=== PATIENT | male | born 1985 | race Caucasian/White ===

== ENCOUNTER 2017-05-14 14:33 | Emergency (ER) | payer OTHER ==
[2017-05-14] MEDS ORDERED: ONDANSETRON 4 MG/2 ML VIAL IVP STA (15:12)
[2017-05-14] MEDS ORDERED: ACETAMINOPHEN TAB 500 MG TAB PO STA (15:13)
[2017-05-14] MEDS ORDERED: IBUPROFEN 600 MG STARTER PACK 4 TAB BTL PO STA (15:13)
[2017-05-14] MEDS ORDERED: SODIUM CHLORIDE 0.9% 1,000 ML IV ONE (15:13)
[2017-05-14 15:43] LABS: Basophils % (A) 0 %; Eosinophils # (A) 0.1 k/uL (0-0.7); Eosinophils % (A) 1 %; HCT 44.4 % (39.0-53.0); HGB 14.9 gm/dL (13.0-17.5); Lymphocytes # (A) 0.6 k/uL (1.0-4.8); Lymphocytes % (A) 11 %; MCH 30.3 pg (25.0-35.0); MCHC 33.5 g/dL (31.0-37.0); MCV 90.3 fL (80.0-100.0); Mean Platelet Volume 9.5; Monocytes # (A) 0.4 k/uL (0-1.0); Monocytes % (A) 8 %; Neutrophils # (A) 3.8 k/uL (1.3-7.7); Neutrophils % (A) 78 %; Platelet Count 121 k/uL (150-450); RBC 4.92 m/uL (4.30-5.90); RDW 14.2 % (11.5-15.5); WBC 4.9 k/uL (3.8-10.6)
--- NOTE | 2017-05-14 15:47 | XR ---
EXAMINATION TYPE: XR chest 2V DATE OF EXAM: 05/14/2017 COMPARISON: NONE HISTORY: Cough and congestion TECHNIQUE: Frontal and lateral views of the chest are obtained on 3 images. FINDINGS: There is no focal air space opacity, pleural effusion, or pneumothorax seen. The cardiac silhouette size is within normal limits. Metallic posterior present to the regions of the nipples. The osseous structures are intact. IMPRESSION: No acute cardiopulmonary process.
--- NOTE | 2017-05-14 15:47 | ED ---
Nausea/Vomiting/Diarrhea HPI - General Chief complaint: Nausea/Vomiting/Diarrhea Stated complaint: Nausea/Vomiting Time Seen by Provider: 05/14/17 14:57 Source: patient, RN notes reviewed, old records reviewed Mode of arrival: EMS Limitations: no limitations - History of Present Illness Initial comments: This patient is a 31-year-old male presents today with fever, chills, diffuse body aches. He reports these had a symptoms since Sunday. He reports severe vomiting and dry coughing as well. He arrives via EMS. Patient has not had any recent Motrin, but has not been able to hold any food or fluids down. He states that he did not receive the flu shot. Denies any significant medical history.Patient denies any recent fever, chills, shortness of breath, chest pain , back pain, abdominal pain, nausea vomiting, numbness or tingling, dysuria or hematuria, constipation or diarrhea, headaches or visual changes, or any other current symptoms - Related Data Home Medications Medication Instructions Recorded Confirmed Buprenorphine HCl/Naloxone HCl 1 tab SUBLINGUAL BID 05/14/17 05/14/17 [Zubsolv 5.7-1.4 mg Tablet Sl] Ibuprofen [Motrin] 800 mg PO TID PRN 05/14/17 05/14/17 Previous Rx's Medication Instructions Recorded Ondansetron Odt [Zofran Odt] 4 mg PO Q8HR PRN #12 tab 05/14/17 Allergies Allergy/AdvReac Type Severity Reaction Status Date / Time No Known Allergies Allergy Verified 05/14/17 15:22 Review of Systems ROS Statement: Those systems with pertinent positive or pertinent negative responses have been documented in the HPI. ROS Other: All systems not noted in ROS Statement are negative. Past Medical History Additional Past Medical History / Comment(s): hernia History of Any Multi-Drug Resistant Organisms: None Reported Past Surgical History: No Surgical Hx Reported Past Psychological History: No Psychological Hx Reported Smoking Status: Current every day smoker Past Alcohol Use History: None Reported Past Drug Use History: None Reported General Exam - General Exam Comments Initial Comments: This patient is a 31-year-old male. No acute distress. Limitations: no limitations General appearance: alert, in no apparent distress Head exam: Present: atraumatic, normocephalic, normal inspection Eye exam: Present: normal appearance, PERRL, EOMI. Absent: scleral icterus, conjunctival injection, periorbital swelling ENT exam: Present: normal exam, mucous membranes moist Neck exam: Present: normal inspection. Absent: tenderness, meningismus, lymphadenopathy Respiratory exam: Present: normal lung sounds bilaterally. Absent: respiratory distress, wheezes, rales, rhonchi, stridor Cardiovascular Exam: Present: regular rate, normal rhythm, normal heart sounds. Absent: systolic murmur, diastolic murmur, rubs, gallop, clicks GI/Abdominal exam: Present: soft, normal bowel sounds. Absent: distended, tenderness, guarding, rebound, rigid Extremities exam: Present: normal inspection, full ROM, normal capillary refill. Absent: tenderness, pedal edema, joint swelling, calf tenderness Back exam: Present: normal inspection Neurological exam: Present: alert, oriented X3, CN II-XII intact Psychiatric exam: Present: normal affect, normal mood Skin exam: Present: warm, dry, intact, normal color. Absent: rash Course Vital Signs 05/14/17 05/14/17 14:43 16:07 Temperature 101 F H 100.7 F H Pulse Rate 71 60 Respiratory 18 16 Rate Blood Pressure 131/56 95/49 O2 Sat by Pulse 98 99 Oximetry Medical Decision Making - Medical Decision Making This patient is a 31-year-old male with 4 days of cough, body aches, and fevers and vomiting. Patient has no abdominal tenderness. Lungs are clear to auscultation. Chest x-ray was reviewed and normal. Patient is positive for an influenza. Patient's CBC is within normal limits. Discussed the patient needs to remain hydrated, given Zofran, Motrin Tylenol. His fever is came down at this point. Patient will be discharged with supportive measures. Discussed return to emergency department if any alarming signs or symptoms occur. - Lab Data Result diagrams: 05/14/17 15:25 05/14/17 15:50 Lab Results 05/14/17 05/14/17 05/14/17 Range/Units 15:00 15:25 15:50 WBC 4.9 (3.8-10.6) k/uL RBC 4.92 (4.30-5.90) m/uL Hgb 14.9 (13.0-17.5) gm/dL Hct 44.4 (39.0-53.0) % MCV 90.3 (80.0-100.0) fL MCH 30.3 (25.0-35.0) pg MCHC 33.5 (31.0-37.0) g/dL RDW 14.2 (11.5-15.5) % Plt Count 121 L (150-450) k/uL Neutrophils % 78 % Lymphocytes % 11 % Monocytes % 8 % Eosinophils % 1 % Basophils % 0 % Neutrophils # 3.8 (1.3-7.7) k/uL Lymphocytes # 0.6 L (1.0-4.8) k/uL Monocytes # 0.4 (0-1.0) k/uL Eosinophils # 0.1 (0-0.7) k/uL Basophils # 0.0 (0-0.2) k/uL Sodium 142 (137-145) mmol/L Potassium 4.1 (3.5-5.1) mmol/L Chloride 105 (98-107) mmol/L Carbon Dioxide 27 (22-30) mmol/L Anion Gap 10 mmol/L BUN 18 (9-20) mg/dL Creatinine 0.80 (0.66-1.25) mg/dL Est GFR (MDRD) Af Amer >60 (>60 ml/min/1.73 sqM) Est GFR (MDRD) Non-Af >60 (>60 ml/min/1.73 sqM) Glucose 112 H (74-99) mg/dL Calcium 8.7 (8.4-10.2) mg/dL Total Bilirubin 0.4 (0.2-1.3) mg/dL AST 35 (17-59) U/L ALT 52 (21-72) U/L Alkaline Phosphatase 63 (38-126) U/L Total Protein 6.6 (6.3-8.2) g/dL Albumin 3.8 (3.5-5.0) g/dL Influenza Type A RNA Detected H (Not Detectd) Influenza Type B (PCR) Not Detected (Not Detectd) - Radiology Data Radiology results: report reviewed Chest x-rays negative for any acute process. Disposition Clinical Impression: Influenza A Disposition: HOME SELF-CARE Condition: Good Instructions: Influenza (ED) Additional Instructions: Patient is alternate Motrin and Tylenol every 4 hours. Take nausea medication as prescribed. Patient needs to follow up with primary care provider. Return to the emergency department if any alarming signs or symptoms occur. Encourage hydration. Prescriptions: Ondansetron Odt [Zofran Odt] 4 mg PO Q8HR PRN #12 tab PRN Reason: Nausea Referrals: None,Stated [Primary Care Provider] - 1-2 days Kat Baker MD [STAFF PHYSICIAN] - 1-2 days Time of Disposition: 16:03
[2017-05-14 16:10] VITALS: BP 95/49; PULSE 60; RESP 16; TEMP 100.7
[2017-05-14 16:23] LABS: ALT 52 U/L (21-72); AST 35 U/L (17-59); Albumin 3.8 g/dL (3.5-5.0); Alkaline Phosphatase 63 U/L (38-126); Blood Urea Nitrogen 18 mg/dL (9-20); Calcium 8.7 mg/dL (8.4-10.2); Carbon Dioxide 27 mmol/L (22-30); Glucose 112 mg/dL (74-99); Potassium 4.1 mmol/L (3.5-5.1); Sodium 142 mmol/L (137-145); Total Bilirubin 0.4 mg/dL (0.2-1.3); Total Protein 6.6 g/dL (6.3-8.2)
[2017-05-14 16:24] LABS: Anion Gap 10 mmol/L; Chloride 105 mmol/L (98-107)
== END 2017-05-14 16:39 | disposition home or self-care (01) ==
LOC: EC 14:33
DX: J09.X2 Influenza due to identified novel influenza A virus with other respiratory manifestations (principal); R11.2 Nausea with vomiting, unspecified; F17.200 Nicotine dependence, unspecified, uncomplicated; Z79.899 Other long term (current) drug therapy
CPT/HCPCS: 99285; 96374; 96361; 36415; 80053; 85025; 87502; 71046; J2405

== ENCOUNTER → 2017-10-08 | Outpatient (CLI) | payer OTHER ==
--- NOTE | 2017-10-08 12:00 | US ---
EXAMINATION TYPE: US abdomen complete DATE OF EXAM: 10/08/2017 COMPARISON: NONE CLINICAL HISTORY: B19.20 Hepatitis C. Hep C EXAM MEASUREMENTS: Liver Length: 20.1 cm Gallbladder Wall: 0.2 cm CBD: 0.4 cm Spleen: 12.5 cm Right Kidney: 11.7 x 4.2 x 5.7 cm Left Kidney: 11.8 x 6.3 x 4.9 cm Pancreas: visualized portions wnl, tail limited by overlying midline bowel gas Liver: enlarged at 20.1cm. Overall homogeneous. Gallbladder: layering hyperechoic echoes, probable sludge Evidence for sonographic Hensley's sign: no CBD: visualized portions wnl, limited by overlying bowel gas Spleen: wnl Right Kidney: wnl Left Kidney: visualized portions wnl, limited by rib shadowing and overlying bowel gas Upper IVC: wnl Abd Aorta: wnl The liver is homogenous. The intrahepatic portion of the IVC and proximal abdominal aorta are within normal limits. There is no evidence of cholelithiasis. Common bile duct is unremarkable. The visu alized portions of the pancreas are homogenous. The spleen is unremarkable. Kidneys are symmetric a nd free of hydronephrosis. No renal lesions are seen. IMPRESSION: 1. Hepatomegaly in this patient with underlying known hepatocellular disease. No sonographic masses o n today's examination. Homogeneous echogenicity of the hepatic parenchyma. 2. Biliary sludge with no sonographic evidence of acute cholecystitis.
== END | disposition home or self-care (01) ==
LOC: RADUSWWP 10:23
PROVIDERS: ATTEND Family Medicine
DX: K76.9 Liver disease, unspecified (principal); R16.0 Hepatomegaly, not elsewhere classified; K83.8 Other specified diseases of biliary tract
CPT/HCPCS: 76700

== ENCOUNTER 2018-05-08 15:37 | Emergency (ER) | payer OTHER ==
[2018-05-08 16:48] VITALS: TEMP 97.8
--- NOTE | 2018-05-08 19:21 | ED ---
Lower Extremity Injury HPI - General Chief Complaint: Extremity Injury, Lower Stated Complaint: Foot/Leg Swelling, no injury Time Seen by Provider: 05/08/18 19:03 Source: patient, RN notes reviewed, old records reviewed Mode of arrival: ambulatory Limitations: no limitations - History of Present Illness Initial Comments: Patient is a 32-year-old male presents emergency dermatology plan of one month of left lower extremity swelling. Patient reports he was seen at [facility] earlier in the month. At that time he had ultrasounds and x- rays. He was diagnosed with cellulitis at that time. Completed antibiotics. Patient reports that he essentially antibiotics a few weeks ago but continues to have swelling and pain. He saw his pain management doctor. He is a recovering heroin addict. He states is been clean for 18 months. [facility] pain management doctor's concern for blood clot and sent him in for evaluation. Patient denies any chest pain or associated shortness of breath. Patient states that he noticed over the past 24 hours he had increased swelling going from the foot and ankle. He reports calf tenderness. Patient is a smoker. He reports that he is out constantly on his feet. - Related Data Home Medications Medication Instructions Recorded Confirmed Buprenorphine HCl/Naloxone HCl 1 tab SL BID 05/08/18 05/08/18 [Zubsolv 5.7-1.4 mg Tablet Sl] Gabapentin 600 mg PO TID 05/08/18 05/08/18 Venlafaxine HCl [Effexor XR] 150 mg PO DAILY 05/08/18 05/08/18 Previous Rx's Medication Instructions Recorded Sulfamethox-Tmp 800-160Mg [Bactrim 2 tab PO Q12HR 14 Days 05/08/18 DS 800-160 mg] Allergies Allergy/AdvReac Type Severity Reaction Status Date / Time No Known Allergies Allergy Verified 05/08/18 20:11 Review of Systems ROS Statement: Those systems with pertinent positive or pertinent negative responses have been documented in the HPI. ROS Other: All systems not noted in ROS Statement are negative. Past Medical History Additional Past Medical History / Comment(s): hernia History of Any Multi-Drug Resistant Organisms: MRSA Date of last positivie culture/infection: 2013 MDRO Source:: R arm Past Surgical History: No Surgical Hx Reported Past Psychological History: No Psychological Hx Reported Smoking Status: Current every day smoker Past Alcohol Use History: None Reported Past Drug Use History: None Reported General Exam - General Exam Comments Initial Comments: 32-year-old male. Alert and oriented. Patient appears in no acute distress. Limitations: no limitations General appearance: alert, in no apparent distress Head exam: Present: atraumatic, normocephalic, normal inspection Eye exam: Present: normal appearance, PERRL, EOMI. Absent: scleral icterus, conjunctival injection, periorbital swelling ENT exam: Present: normal exam, mucous membranes moist Neck exam: Present: normal inspection. Absent: tenderness, meningismus, lymphadenopathy Respiratory exam: Present: normal lung sounds bilaterally. Absent: respiratory distress, wheezes, rales, rhonchi, stridor Cardiovascular Exam: Present: regular rate, normal rhythm, normal heart sounds. Absent: systolic murmur, diastolic murmur, rubs, gallop, clicks Left Knee exam: Present: normal inspection, swelling Lower Leg exam: Present: swelling, ecchymosis (over lateral malleoulus), erythema (over lower 1/2 of leg) Ankle exam: Present: swelling, erythema Foot/Toe exam: Present: swelling Neurovascular tendon exam: Present: no vascular compromise Psychiatric exam: Present: normal affect, normal mood Skin exam: Present: warm, dry, intact, normal color. Absent: rash Course Vital Signs 05/08/18 05/08/18 05/08/18 16:44 19:25 21:42 Temperature 97.8 F 97.8 F Pulse Rate 58 L 60 Respiratory 18 19 19 Rate Blood Pressure 120/80 122/87 O2 Sat by Pulse 100 97 Oximetry Medical Decision Making - Medical Decision Making 32 year old male with one month of L lower extremity swelling. Patient does have normal ROM, sensation and cap refill of L lower leg. Patient has extensive swelling, and erythema over lower calf and tib fib. US is suprisingly negative for DVT, considering clinical exam. Patient Xray tib fib was normal. Patient case discussed with Dr. Irwin, whom also examined patient. 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 Started patient on bactrim. Discussed patient should return if symptoms persist. Given SANTIAGO wrap. Discussed patient may need inpatient abx treatmentif no improvement in 2-3 days. - Radiology Data Radiology results: report reviewed Ultrasound is negative for DVT. X-rays negative for any acute bony abnormality. Disposition Clinical Impression: Left leg swelling, Left leg cellulitis Disposition: HOME SELF-CARE Condition: Good Instructions: Cellulitis (ED) Additional Instructions: Patient is to rest, keep the leg up and elevated. Wear the [place] wrap. Complete antibiotic prescription. Follow-up with primary care provider. There is any worsening redness, fevers chills or swelling Patient needs to return to emergency department for reevaluation and possibly IV antibiotics. Prescriptions: Sulfamethox-Tmp 800-160Mg [Bactrim DS 800-160 mg] 2 tab PO Q12HR 14 Days Is patient prescribed a controlled substance at d/c from ED?: No Referrals: Kat Baker MD [Primary Care Provider] - 1-2 days Time of Disposition: 21:22
[2018-05-08 19:25] VITALS: RESP 19
--- NOTE | 2018-05-08 20:25 | US ---
EXAMINATION TYPE: US venous doppler duplex LE LT DATE OF EXAM: 05/08/2018 8:16 PM COMPARISON: NONE CLINICAL HISTORY: Pain. Left ankle swelling. SIDE PERFORMED: Left TECHNIQUE: The lower extremity deep venous system is examined utilizing real time linear array sonog jacky with graded compression, doppler sonography and color-flow sonography. VESSELS IMAGED: External Iliac Vein (EIV) Common Femoral Vein Deep Femoral Vein Greater Saphenous Vein * Femoral Vein Popliteal Vein Small Saphenous Vein * Proximal Calf Veins (* superficial vessels) Left Leg: Negative for DVT No evidence of DVT left leg. IMPRESSION: Negative exam. No deep venous thrombosis in the left leg.
--- NOTE | 2018-05-08 20:48 | XR ---
EXAMINATION TYPE: XR tibia fibula LT DATE OF EXAM: 05/08/2018 COMPARISON: NONE HISTORY: Leg swelling TECHNIQUE: 4 views FINDINGS: I see no fracture nor dislocation. Knee joint and ankle joint appear intact. Joint spaces a re fairly normal. There are small Achilles calcaneal spur. Tibia and fibula appear intact. IMPRESSION: No acute bony abnormality.
[2018-05-08] MEDS ORDERED: SULFAMETH-TMP DS STARTER PACK 2 TAB BTL PO STA (21:24)
[2018-05-08 21:54] VITALS: BP 122/87; PULSE 60
== END 2018-05-08 21:43 | disposition home or self-care (01) ==
LOC: EC 15:37
DX: L03.116 Cellulitis of left lower limb (principal); M79.89 Other specified soft tissue disorders; F17.200 Nicotine dependence, unspecified, uncomplicated; Z86.14 Personal history of Methicillin resistant Staphylococcus aureus infection; Z79.899 Other long term (current) drug therapy
CPT/HCPCS: 99284

== ENCOUNTER 2019-02-02 21:38 | Emergency (ER) | payer OTHER ==
[2019-02-02 22:17] VITALS: BP 114/59; PULSE 84; RESP 20; TEMP 98.1
[2019-02-02] MEDS ORDERED: SODIUM CHLORIDE 0.9% 1,000 ML IV STA (23:46)
--- NOTE | 2019-02-02 23:53 | ED ---
Abdominal Pain HPI - General Chief Complaint: Abdominal Pain Stated Complaint: Side pain Time Seen by Provider: 02/02/19 23:26 Source: patient, family, RN notes reviewed, old records reviewed Mode of arrival: ambulatory Limitations: no limitations - History of Present Illness Initial Comments: This is a 33-year-old male the ER for evaluation patient coming of left-sided chest pain left flank pain. Severe. Patient does have significant history of drug abuse. Patient is a poor strain secondary to being currently on breath. Patient's states patient is currently intake currently is meth today. Patient coming with left-sided chest pain but states patient's been complaining FOR some time but was significantly worried about it tonight. MD Complaint: abdominal pain, flank pain, other (Left-sided chest pain) -: unknown Location: LLQ, L flank Radiation: LUQ Migration to: L flank Severity: moderate Severity scale (1-10): 4 Quality: aching Consistency: intermittent Improves With: nothing Worsens With: nothing Associated Symptoms: denies other symptoms - Related Data Home Medications Medication Instructions Recorded Confirmed Buprenorphine HCl/Naloxone HCl 1 tab SL BID 05/08/18 02/02/19 [Zubsolv 5.7-1.4 mg Tablet Sl] Gabapentin 800 mg PO TID 10/29/18 02/02/19 FLUoxetine HCL [PROzac] 10 mg PO DAILY 02/02/19 02/02/19 Allergies Allergy/AdvReac Type Severity Reaction Status Date / Time No Known Allergies Allergy Verified 02/02/19 23:41 Review of Systems ROS Statement: Those systems with pertinent positive or pertinent negative responses have been documented in the HPI. ROS Other: All systems not noted in ROS Statement are negative. Past Medical History Additional Past Medical History / Comment(s): hernia History of Any Multi-Drug Resistant Organisms: MRSA Date of last positivie culture/infection: 2013 MDRO Source:: R arm Past Surgical History: No Surgical Hx Reported Past Psychological History: ADD/ADHD Smoking Status: Current every day smoker Past Alcohol Use History: None Reported Past Drug Use History: Marijuana General Exam Limitations: no limitations General appearance: alert, in no apparent distress, appears intoxicated Head exam: Present: atraumatic, normocephalic, normal inspection Eye exam: Present: normal appearance, PERRL, EOMI. Absent: scleral icterus, conjunctival injection, periorbital swelling ENT exam: Present: normal exam, mucous membranes moist Neck exam: Present: normal inspection. Absent: tenderness, meningismus, lymphadenopathy Respiratory exam: Present: normal lung sounds bilaterally. Absent: respiratory distress, wheezes, rales, rhonchi, stridor Cardiovascular Exam: Present: regular rate, normal rhythm, normal heart sounds. Absent: systolic murmur, diastolic murmur, rubs, gallop, clicks GI/Abdominal exam: Present: soft, normal bowel sounds. Absent: distended, tenderness, guarding, rebound, rigid Extremities exam: Present: normal inspection, full ROM, normal capillary refill. Absent: tenderness, pedal edema, joint swelling, calf tenderness Back exam: Present: normal inspection Neurological exam: Present: alert, oriented X3, CN II-XII intact Psychiatric exam: Present: normal affect, normal mood Skin exam: Present: warm, dry, intact, normal color. Absent: rash Course Vital Signs 02/02/19 22:14 Temperature 98.1 F Pulse Rate 84 Respiratory 20 Rate Blood Pressure 114/59 O2 Sat by Pulse 98 Oximetry - Reevaluation(s) Reevaluation #1: 02/03/19 00:17 Medical records reviewed Reevaluation #2: 02/03/19 00:33 Patient acting erratically, fighting with girlfriend at bedside who does have to her child with her, civil geotechnical engineer did attempt to take patient is CT which she refused patient then became argumentative with CT as well as staff Reevaluation #3: 02/03/19 00:34 Patient will be discharged and has medical advice as he is refusing all testing, patient is able to understand his refusing testing despite drug intoxication, girlfriend also understands Medical Decision Making - Medical Decision Making 33 male refusing testing patient's or with . Patient combative with staff combative with , patient leaves ER, we'll an elopement secondary refusing all testing, took out his own IV - Lab Data Result diagrams: 02/03/19 00:10 02/03/19 00:10 Lab Results 02/03/19 02/03/19 02/03/19 Range/Units 00:10 00:10 00:10 WBC 9.1 (3.8-10.6) k/uL RBC 4.56 (4.30-5.90) m/uL Hgb 13.6 (13.0-17.5) gm/dL Hct 38.3 L (39.0-53.0) % MCV 84.0 (80.0-100.0) fL MCH 29.8 (25.0-35.0) pg MCHC 35.5 (31.0-37.0) g/dL RDW 12.2 (11.5-15.5) % Plt Count 243 (150-450) k/uL Neutrophils % 59 % Lymphocytes % 29 % Monocytes % 6 % Eosinophils % 3 % Basophils % 1 % Neutrophils # 5.4 (1.3-7.7) k/uL Lymphocytes # 2.7 (1.0-4.8) k/uL Monocytes # 0.6 (0-1.0) k/uL Eosinophils # 0.3 (0-0.7) k/uL Basophils # 0.1 (0-0.2) k/uL Sodium 141 (137-145) mmol/L Potassium 4.3 (3.5-5.1) mmol/L Chloride 104 (98-107) mmol/L Carbon Dioxide 28 (22-30) mmol/L Anion Gap 9 mmol/L BUN 17 (9-20) mg/dL Creatinine 0.94 (0.66-1.25) mg/dL Est GFR (CKD-EPI)AfAm >90 (>60 ml/min/1.73 sqM) Est GFR (CKD-EPI)NonAf >90 (>60 ml/min/1.73 sqM) Glucose 93 (74-99) mg/dL Plasma Lactic Acid Nikolay 0.5 L (0.7-2.0) mmol/L Calcium 9.6 (8.4-10.2) mg/dL Total Bilirubin 0.8 (0.2-1.3) mg/dL AST 37 (17-59) U/L ALT 28 (21-72) U/L Alkaline Phosphatase 110 (38-126) U/L Creatine Kinase 384 H (55-170) U/L Troponin I (0.000-0.034) ng/mL Total Protein 7.7 (6.3-8.2) g/dL Albumin 4.4 (3.5-5.0) g/dL Amylase 47 (30-110) U/L Lipase 59 (23-300) U/L 02/03/19 Range/Units 00:10 WBC (3.8-10.6) k/uL RBC (4.30-5.90) m/uL Hgb (13.0-17.5) gm/dL Hct (39.0-53.0) % MCV (80.0-100.0) fL MCH (25.0-35.0) pg MCHC (31.0-37.0) g/dL RDW (11.5-15.5) % Plt Count (150-450) k/uL Neutrophils % % Lymphocytes % % Monocytes % % Eosinophils % % Basophils % % Neutrophils # (1.3-7.7) k/uL Lymphocytes # (1.0-4.8) k/uL Monocytes # (0-1.0) k/uL Eosinophils # (0-0.7) k/uL Basophils # (0-0.2) k/uL Sodium (137-145) mmol/L Potassium (3.5-5.1) mmol/L Chloride (98-107) mmol/L Carbon Dioxide (22-30) mmol/L Anion Gap mmol/L BUN (9-20) mg/dL Creatinine (0.66-1.25) mg/dL Est GFR (CKD-EPI)AfAm (>60 ml/min/1.73 sqM) Est GFR (CKD-EPI)NonAf (>60 ml/min/1.73 sqM) Glucose (74-99) mg/dL Plasma Lactic Acid Nikolay (0.7-2.0) mmol/L Calcium (8.4-10.2) mg/dL Total Bilirubin (0.2-1.3) mg/dL AST (17-59) U/L ALT (21-72) U/L Alkaline Phosphatase (38-126) U/L Creatine Kinase (55-170) U/L Troponin I <0.012 (0.000-0.034) ng/mL Total Protein (6.3-8.2) g/dL Albumin (3.5-5.0) g/dL Amylase (30-110) U/L Lipase (23-300) U/L Disposition Clinical Impression: Abdominal pain Disposition: Left Against Medical Advice Condition: Undetermined Instructions (If sedation given, give patient instructions): Abdominal Pain (ED) Is patient prescribed a controlled substance at d/c from ED?: No Referrals: Kat Baker MD [Primary Care Provider] - 1-2 days
[2019-02-03] MEDS ORDERED: LORazepam 2 MG/ML INJ IV STA (00:17)
[2019-02-03 00:25] LABS: Basophils # (A) 0.1 k/uL (0-0.2); Basophils % (A) 1 %; Eosinophils # (A) 0.3 k/uL (0-0.7); Eosinophils % (A) 3 %; HCT 38.3 % (39.0-53.0); HGB 13.6 gm/dL (13.0-17.5); Lymphocytes # (A) 2.7 k/uL (1.0-4.8); Lymphocytes % (A) 29 %; MCH 29.8 pg (25.0-35.0); MCHC 35.5 g/dL (31.0-37.0); Mean Platelet Volume 6.7; Monocytes # (A) 0.6 k/uL (0-1.0); Monocytes % (A) 6 %; Neutrophils # (A) 5.4 k/uL (1.3-7.7); Neutrophils % (A) 59 %; Platelet Count 243 k/uL (150-450); RBC 4.56 m/uL (4.30-5.90); RDW 12.2 % (11.5-15.5); WBC 9.1 k/uL (3.8-10.6)
[2019-02-03 00:39] LABS: ALT 28 U/L (21-72); AST 37 U/L (17-59); African American GFR (CKD) >90 (>60 ml/min/1.73 sqM); Albumin 4.4 g/dL (3.5-5.0); Alkaline Phosphatase 110 U/L (38-126); Amylase 47 U/L (30-110); Anion Gap 9 mmol/L; Blood Urea Nitrogen 17 mg/dL (9-20); Calcium 9.6 mg/dL (8.4-10.2); Carbon Dioxide 28 mmol/L (22-30); Chloride 104 mmol/L (98-107); Creatine Kinase 384 U/L (55-170); Glucose 93 mg/dL (74-99); Potassium 4.3 mmol/L (3.5-5.1); Sodium 141 mmol/L (137-145); Total Bilirubin 0.8 mg/dL (0.2-1.3); Total Protein 7.7 g/dL (6.3-8.2)
== END 2019-02-03 01:02 | disposition left against medical advice (07) ==
LOC: EC 21:38
DX: R10.32 Left lower quadrant pain (principal); R07.9 Chest pain, unspecified; F17.200 Nicotine dependence, unspecified, uncomplicated; Z79.899 Other long term (current) drug therapy
CPT/HCPCS: 36415; 80053; 82150; 82550; 83605; 83690; 84484; 85025; 99284; 96374; 96361; J2060